=== PATIENT | female | born 1935 | race Caucasian/White ===

== ENCOUNTER 2021-02-17 15:44 | Inpatient (IN) | payer MEDICARE, OTHER ==
[~2021-02-17] VITALS: Ht 157.5 cm; Wt 59.0 kg
--- NOTE | 2021-02-17 16:00 | NUR ---
DR. 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
--- NOTE | 2021-02-17 16:14 | NUR ---
PT TO CT SCAN
[2021-02-17] MEDS ORDERED: MORPHINE SULFATE 2 MG/1 ML DISP.SYRIN IV ONE (16:15)
[2021-02-17] MEDS ORDERED: ONDANSETRON 4 MG/2 ML VIAL IV ONE (16:15)
[2021-02-17] MEDS ORDERED: PIPERACILLIN SODIUM/TAZOBACTAM 3.375 G in IV DEXTROSE 5% 50 ML IV ONE (16:15)
[2021-02-17] MEDS ORDERED: ONDANSETRON 4 MG/2 ML VIAL ONE (16:23)
[2021-02-17] MEDS ORDERED: PIPERACILLIN/TAZOBACTAM/D5W 50 ML IV ONE (16:24)
[2021-02-17] MEDS ORDERED: MORPHINE SULFATE 2 MG/1 ML DISP.SYRIN ONE (16:24)
[2021-02-17 16:36] LABS: HEMATOCRIT 33.5 % (31.2-41.9); MEAN CORPUSCULAR HEMOGLOBIN 24.1 uug (24.7-32.8); MEAN CORPUSCULAR VOLUME 80.3 fL (75.5-95.3); PLATELET COUNT (AUTO) 122 K/uL (179-408)
[2021-02-17 16:40] LABS: CARBON DIOXIDE 23 mmol/L (21-32); CHLORIDE 105 mmol/L (98-107); CREATININE 1.4 mg/dL (0.6-1.3); GLUCOSE 97 mg/dL (74-106); POTASSIUM 3.8 mmol/L (3.5-5.1); UREA NITROGEN, BLOOD 19 mg/dL (7-18)
[2021-02-17 16:46] LABS: ALANINE AMINOTRANSFERASE 11 U/L (14-59); ALKALINE PHOSPHATASE 108 U/L (50-136); ASPARTATE AMINOTRANSFERASE 24 U/L (15-37); BILIRUBIN,DIRECT 0.2 mg/dL (0.0-0.2); BILIRUBIN,TOTAL 0.7 mg/dL (0.2-1.0); TOTAL PROTEIN, SERUM 6.5 g/dL (6.4-8.2)
[2021-02-17] MEDS ORDERED: IV NS 1000 ML 1,000 ML IV ONE (17:00)
[2021-02-17] MEDS ORDERED: PRAV40TA3 PO (17:32)
[2021-02-17] MEDS ORDERED: IBRU140T PO (17:32)
[2021-02-17] MEDS ORDERED: ALLO100T PO (17:32)
[2021-02-17] MEDS ORDERED: LEVO50TA8 PO (17:32)
[2021-02-17 17:45] LABS: BAND % (MANUAL) 2 % (0-10); EOSINOPHILS % (MANUAL) 1 % (0-8); LYMPHOCYTES % (MANUAL) 80 % (20-40); MONOCYTES % (MANUAL) 4 % (2-10); NEUTROPHILS % (MANUAL) 10 % (42-75)
[2021-02-17 17:46] LABS: BLASTS, MANUAL % 3 % (0-0)
--- NOTE | 2021-02-17 18:07 | NUR ---
PT REFUSED DINNER, REQUESTED SOME JELLY ONLY.
--- NOTE | 2021-02-17 18:12 | NUR ---
DR. FERMIN ADMITTED PT TO TELE. TRANSFER TO FLOOR PENDING ON BED AVAILABILITY
--- NOTE | 2021-02-17 19:05 | NUR ---
Report recieved from MILI Rod. Pt stable, resting comfortably with no complaints of pain, nausea or discomfort. VSS, PE WNL with good color, temp, and appearance. no s/sx of distress present
[2021-02-17] MEDS ORDERED: ONDANSETRON 4 MG/2 ML VIAL IV PRN (20:30)
--- NOTE | 2021-02-17 21:40 | NUR ---
Called tele floor to give report to Swati, Swati told me she would call back in5-10 min.
[2021-02-17] MEDS ORDERED: CLINDAMYCIN PHOSPHATE IV 600 MG in IV DEXTROSE 5% 100 ML IV SCH (22:00)
--- NOTE | 2021-02-17 22:00 | NUR ---
Called tele floor a second time to give report. Swati said she is still very busy and would have to call me back.
--- NOTE | 2021-02-17 22:10 | NUR ---
Report given to Cailin Longoria. Pt belongs form completed. VSS, PE WNL, Pt is sleepy and states that she feels weak.
--- NOTE | 2021-02-17 23:00 | NUR ---
Pt transported to tele room 306 without incident. Pt tolerated well. Denies any pain, nausea or discomfort. Pt taken to tele room, walked over to bed and changed into gown and placed on tele. No s/sx of distress present.
--- NOTE | 2021-02-17 23:10 | NUR ---
Admitted 85 yr old female from ER. With admitting diagnosis right jaw dental abscess via gurney. Able to transfer/ ambulate with contact guard assist. She is anxious, wanting to go home, confused. Vitals taken, placed on telemetry. Able to answer questions appropriately but with moments of confusion and inappropriate remarks. Admission care rendered. care home assessment completed. Admission orders carried out.
[2021-02-17 23:30] VITALS: BP 126/50
[2021-02-18] VITALS: BP 120/51
[2021-02-18] MEDS: ACETAMINOPHEN 325 MG TABLET PO PRN ×3 (01:04→21:09)
--- NOTE | 2021-02-18 01:04 | NUR ---
Photo of right jaw swelling and redness taken. Temperature noted at 101.5, cooling measures offered but declined. Tylenol 650mg PO given. Kept comfortable and dry.
[2021-02-18] MEDS ORDERED: CLINDAMYCIN PHOSPHATE 600 MG/4 ML VIAL ONE (01:46)
[2021-02-18] MEDS: CLINDAMYCIN PHOSPHATE IV 600 MG in IV DEXTROSE 5% 100 ML IV SCH ×2 (02:05→09:19)
[2021-02-18] MEDS: ACIDOPHILUS/BULGARICUS CHEW TAB PO SCH ×4 (02:09→21:03)
[2021-02-18 04:00] VITALS: BP 109/52
--- NOTE | 2021-02-18 04:00 | NUR ---
Cooling measures and Tylenol 650mg PO effective. Temperature decreased to 98.1.
[2021-02-18] MEDS: IV 1/2NS 1000 ML 1,000 ML IV PRN ×2 (04:08→23:54)
--- NOTE | 2021-02-18 06:20 | NUR ---
Patient resting comfortably this shift. Able to make needs known, alert *4, denies any pain. Still noted with swelling and redness to right jaw due to dental abscess, picture in chart. Clindamycin provided as ordered via IV on right AC. no adverse reaction noted.
[2021-02-18] MEDS: LEVOTHYROXINE SODIUM 50 MCG TABLET PO SCH (06:38)
[2021-02-18 07:16] LABS: HEMATOCRIT 30.2 % (31.2-41.9); MEAN CORPUSCULAR HEMOGLOBIN 24.5 uug (24.7-32.8); MEAN CORPUSCULAR VOLUME 80.9 fL (75.5-95.3); PLATELET COUNT (AUTO) 91 K/uL (179-408)
[2021-02-18 07:32] LABS: IRON, SERUM 15 ug/dL (50-175)
[2021-02-18 07:40] LABS: ALANINE AMINOTRANSFERASE 11 U/L (14-59); ALKALINE PHOSPHATASE 94 U/L (50-136); ASPARTATE AMINOTRANSFERASE 24 U/L (15-37); BILIRUBIN,TOTAL 0.7 mg/dL (0.2-1.0); CARBON DIOXIDE 25 mmol/L (21-32); CHLORIDE 108 mmol/L (98-107); CHOLESTEROL 150 mg/dL (<200); CREATININE 1.4 mg/dL (0.6-1.3); GLUCOSE 88 mg/dL (74-106); HDL CHOLESTEROL 17 mg/dL (40-60); PHOSPHOROUS 3.5 mg/dL (2.5-4.9); POTASSIUM 3.9 mmol/L (3.5-5.1); TOTAL PROTEIN, SERUM 5.6 g/dL (6.4-8.2); TRIGLYCERIDES 143 MG/DL (30-150); UREA NITROGEN, BLOOD 19 mg/dL (7-18)
[2021-02-18 07:56] LABS: THYROID STIMULATING HORMONE 2.924 mIU/mL (0.358-3.740)
[2021-02-18] MEDS: ALLOPURINOL 100 MG TABLET PO SCH (08:56)
[2021-02-18] MEDS: MORPHINE SULFATE 2 MG/1 ML DISP.SYRIN IV PRN ×2 (08:56→14:12)
[2021-02-18] MEDS: PANTOPRAZOLE SODIUM 40 MG VIAL IV SCH (08:58)
[2021-02-18 11:15] VITALS: BP 112/52
[2021-02-18] MEDS: PIPERACILLIN SODIUM/TAZOBACTAM 3.375 G in IV DEXTROSE 5% 50 ML IV SCH ×2 (14:09→19:36)
--- NOTE | 2021-02-18 14:57 | NUR ---
APPLICATION INTEGRATION ARCHITECT reported to RN that patient has a fever, as recorded, and is desaturating on RA at 84-88%. This was after Morphine 2mg was given, placed pateint on supportive O2 of 2LPM via NC. Will administer Tylenol 650 mg PO.
[2021-02-18] MEDS ORDERED: VANCOMYCIN IV 1,000 MG in IV DEXTROSE 5% 250 ML IV ONE (15:00)
[2021-02-18 15:30] VITALS: BP 117/53
[2021-02-18 16:57] LABS: BAND % (MANUAL) 1 % (0-10); LYMPHOCYTES % (MANUAL) 75 % (20-40); MONOCYTES % (MANUAL) 8 % (2-10); NEUTROPHILS % (MANUAL) 16 % (42-75)
[2021-02-18 20:03] VITALS: BP 111/43
[2021-02-19] MEDS: PIPERACILLIN SODIUM/TAZOBACTAM 3.375 G in IV DEXTROSE 5% 50 ML IV SCH ×3 (02:53→13:47)
[2021-02-19 04:06] VITALS: BP 122/43
--- NOTE | 2021-02-19 04:56 | NUR ---
Pt in no acute distress. Able to make needs known. Denies SOB or chest pain. Titrated to RA, satting 95%. IV site intact. No other issues or concerns at this time, will endorse to day shift.
[2021-02-19] MEDS: ACIDOPHILUS/BULGARICUS CHEW TAB PO SCH ×3 (06:00→21:20)
[2021-02-19] MEDS: LEVOTHYROXINE SODIUM 50 MCG TABLET PO SCH (06:00)
[2021-02-19 07:28] LABS: HEMATOCRIT 30.7 % (31.2-41.9); MEAN CORPUSCULAR HEMOGLOBIN 24.6 uug (24.7-32.8); MEAN CORPUSCULAR VOLUME 80.8 fL (75.5-95.3); PLATELET COUNT (AUTO) 75 K/uL (179-408)
[2021-02-19 07:43] LABS: CARBON DIOXIDE 23 mmol/L (21-32); CHLORIDE 107 mmol/L (98-107); CREATININE 1.4 mg/dL (0.6-1.3); GLUCOSE 88 mg/dL (74-106); PHOSPHOROUS 3.2 mg/dL (2.5-4.9); POTASSIUM 3.8 mmol/L (3.5-5.1); UREA NITROGEN, BLOOD 17 mg/dL (7-18)
--- NOTE | 2021-02-19 08:00 | NUR ---
Received pt from table games shift manager RN. Pt is a/o x3-4. Currenlty stable on room air , she was titrated off from 2 L NC during table games shift manager. 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 Pt has call light within reach, no signs of acute distress or discomfort at this time. will continue to monitor.
[2021-02-19] MEDS: PANTOPRAZOLE SODIUM 40 MG VIAL IV SCH (08:40)
[2021-02-19] MEDS: ALLOPURINOL 100 MG TABLET PO SCH (08:40)
[2021-02-19] MEDS: Z GUARD REMEDY PASTE 57 GM TUBE TOP SCH ×2 (09:45→21:24)
[2021-02-19] MEDS: ACETAMINOPHEN 325 MG TABLET PO PRN (10:11)
[2021-02-19 11:00] VITALS: BP 120/53
--- NOTE | 2021-02-19 11:00 | NUR ---
at 1015 pt had temperature of 99.1. Provided acetaminophen, at 1056 temp was reassessed at 98.3.
[2021-02-19] MEDS ORDERED: MIRALAX 17 GM POWD.PACK PO PRN (11:45)
[2021-02-19 15:00] VITALS: BP 101/57
[2021-02-19] MEDS: VANCOMYCIN IV 750 MG in IV DEXTROSE 5% 250 ML IV SCH (15:36)
[2021-02-19] MEDS ORDERED: HOME MED MISCELLANEOUS PO SCH (18:00)
[2021-02-19] MEDS: IV 1/2NS 1000 ML 1,000 ML IV PRN (19:54)
[2021-02-19 20:06] VITALS: BP 130/58
--- NOTE | 2021-02-19 20:11 | NUR ---
Received patient in bed alert and able to make needs known.On RA ,denies SOB.No acute distress noted.Rt jaw still noted with mild swelling.Denies pain at this time.Iv on Right hand with IVF running well .Tolerated well.Adm. IV ATB as ordered. No a/r noted.Will continue to monitor.
[2021-02-19] MEDS: PIPERACILLIN/TAZO 2.25 G in IV DEXTROSE 5% 50 ML IV SCH (20:12)
[2021-02-19] MEDS: TEMAZEPAM 15 MG CAPSULE PO PRN (21:33)
[2021-02-20] MEDS: PIPERACILLIN/TAZO 2.25 G in IV DEXTROSE 5% 50 ML IV SCH ×4 (02:12→20:16)
[2021-02-20 04:06] VITALS: BP 147/59
[2021-02-20] MEDS: ACIDOPHILUS/BULGARICUS CHEW TAB PO SCH ×2 (05:52→13:22)
[2021-02-20] MEDS: IV 1/2NS 1000 ML 1,000 ML IV PRN (05:53)
[2021-02-20] MEDS: PANTOPRAZOLE SODIUM 40 MG TABLET.DR PO SCH (06:19)
[2021-02-20] MEDS: LEVOTHYROXINE SODIUM 50 MCG TABLET PO SCH (06:19)
[2021-02-20 07:14] LABS: HEMATOCRIT 29.4 % (31.2-41.9); MEAN CORPUSCULAR HEMOGLOBIN 24.4 uug (24.7-32.8); PLATELET COUNT (AUTO) 89 K/uL (179-408)
[2021-02-20 07:47] LABS: BILIRUBIN,TOTAL 0.6 mg/dL (0.2-1.0); CREATININE 1.3 mg/dL (0.6-1.3); PHOSPHOROUS 2.7 mg/dL (2.5-4.9); POTASSIUM 3.6 mmol/L (3.5-5.1); TOTAL PROTEIN, SERUM 5.5 g/dL (6.4-8.2)
[2021-02-20] MEDS: ALLOPURINOL 100 MG TABLET PO SCH (08:28)
[2021-02-20] MEDS: Z GUARD REMEDY PASTE 57 GM TUBE TOP SCH ×2 (08:34→20:21)
--- NOTE | 2021-02-20 09:03 | NUR ---
received critical wbc 43.9 trending down previously 52.6. informed dr. martinez who's on the floor nno received.
--- NOTE | 2021-02-20 09:58 | NUR ---
received this morning awake and previous nurse reinserting iv on rfa. denies pain or sob. comfortable on ra. still noted with mild swelling and some redness on right jaw. pt tolerated breakfast and medications earlier. bed at lowest siderails up x2. call light and personal belongings in reach.
[2021-02-20 10:55] VITALS: BP 99/75
--- NOTE | 2021-02-20 12:25 | NUR ---
per pt imbruvica med kept at pharmacy is not , just in an old bottle. re will bring new bottle tomorrow. pharmacy made aware.
[2021-02-20] MEDS: IMBRUVICA 140 MG PO SCH ×2 (13:28→20:20)
[2021-02-20] MEDS: VANCOMYCIN IV 750 MG in IV DEXTROSE 5% 250 ML IV SCH (14:20)
--- NOTE | 2021-02-20 19:40 | NUR ---
Received patient lying in bed, awake and alert. No acute distress noted at this time. Patient denies SOB, chest pain or dizziness. IV on R FA, 20 gauge, patent and intact. Reoriented patient to call light button. Bed side table within reach. Will continue to monitor.
[2021-02-20 20:06] VITALS: BP 150/59
[2021-02-20] MEDS: TEMAZEPAM 15 MG CAPSULE PO PRN (21:04)
[2021-02-21] MEDS: PIPERACILLIN/TAZO 2.25 G in IV DEXTROSE 5% 50 ML IV SCH ×2 (02:02→08:14)
[2021-02-21 04:06] VITALS: BP 153/64
[2021-02-21] MEDS: IV 1/2NS 1000 ML 1,000 ML IV PRN (06:10)
[2021-02-21] MEDS: LEVOTHYROXINE SODIUM 50 MCG TABLET PO SCH (06:10)
[2021-02-21] MEDS: PANTOPRAZOLE SODIUM 40 MG TABLET.DR PO SCH (06:10)
--- NOTE | 2021-02-21 06:58 | NUR ---
Patient slept intermittently through the night. No acute distress noted at this time.All due medications were given as ordered. Safety and comfort measures maintained. All needs were attended to and met. Will endorse to incoming nurse.
[2021-02-21] MEDS: ALLOPURINOL 100 MG TABLET PO SCH (08:14)
[2021-02-21] MEDS: Z GUARD REMEDY PASTE 57 GM TUBE TOP SCH ×2 (08:15→20:23)
--- NOTE | 2021-02-21 09:00 | NUR ---
walked in the hallway with physical therapist tolerated. no acute distress. pt was happy to be walking.
[2021-02-21 11:34] VITALS: BP 144/85
[2021-02-21] MEDS: PIPERACILLIN SODIUM/TAZOBACTAM 3.375 G in IV DEXTROSE 5% 100 ML IV SCH ×2 (15:55→23:58)
[2021-02-21 15:57] VITALS: BP 140/64
[2021-02-21 17:33] LABS: MEAN CORPUSCULAR HEMOGLOBIN 24.6 uug (24.7-32.8)
[2021-02-21 17:36] LABS: HEMATOCRIT 31.7 % (31.2-41.9); MEAN CORPUSCULAR VOLUME 80.5 fL (75.5-95.3); PLATELET COUNT (AUTO) 144 K/uL (179-408)
--- NOTE | 2021-02-21 17:56 | NUR ---
notified dr. martinez of wbc 88.1. dr martinez in the patient's room. KAREN mahmood also made aware waiting for reply.
--- NOTE | 2021-02-21 18:18 | NUR ---
dr. martinez on the floor with order for stat kub noted and carried.
--- NOTE | 2021-02-21 18:49 | NUR ---
alert and oriented able to make needs known. denies pain or sob. no acute distress. on iv atb zosyn no adverse/allergic reaction noted. blake midline intact and patent. no n/v/d noted. patient is comfortable. bed at lowest siderails up x2. needs attended. call light and personal belongings in reach. grandson and son in law were visiting no complaints. will endorse.
[2021-02-21 18:55] LABS: BAND % (MANUAL) 1 % (0-10); NEUTROPHILS % (MANUAL) 12 % (42-75)
[2021-02-21 18:56] LABS: EOSINOPHILS % (MANUAL) 1 % (0-8); MONOCYTES % (MANUAL) 3 % (2-10)
[2021-02-21 18:58] LABS: LYMPHOCYTES % (MANUAL) 83 % (20-40)
--- NOTE | 2021-02-21 19:55 | NUR ---
Patient in bed AALO4 .No acute distress noted. On Ra.Midline on Rt upper arm patent and intact with IVF infusing well.Dr Spencer Notified STAT KUB result with new order noted and carried. Patient made aware. Call light with in reach.
[2021-02-21] MEDS ORDERED: BISACODYL 10 MG SUPP.RECT RC PRN (20:00)
[2021-02-21 20:03] VITALS: BP 144/57
[2021-02-21] MEDS: IMBRUVICA 140 MG PO SCH (20:22)
[2021-02-21] MEDS: TEMAZEPAM 15 MG CAPSULE PO PRN (21:23)
--- NOTE | 2021-02-21 22:01 | NUR ---
Patient had a large BM after Dulcolax suppository given.Assisted patient to bathroom using FWW.SAfety mesures maintained.Will continue to monitor.
[2021-02-22 04:57] VITALS: BP 153/60
[2021-02-22] MEDS: PANTOPRAZOLE SODIUM 40 MG TABLET.DR PO SCH (06:05)
[2021-02-22] MEDS: IV 1/2NS 1000 ML 1,000 ML IV PRN (06:05)
[2021-02-22] MEDS: LEVOTHYROXINE SODIUM 50 MCG TABLET PO SCH (06:05)
[2021-02-22 06:51] LABS: HEMATOCRIT 30.4 % (31.2-41.9); MEAN CORPUSCULAR HEMOGLOBIN 24.1 uug (24.7-32.8); MEAN CORPUSCULAR VOLUME 79.9 fL (75.5-95.3); PLATELET COUNT (AUTO) 147 K/uL (179-408)
[2021-02-22 06:58] LABS: CREATININE 1.2 mg/dL (0.6-1.3); MAGNESIUM 2.1 mg/dL (1.8-2.4); PHOSPHOROUS 3.4 mg/dL (2.5-4.9); POTASSIUM 4.2 mmol/L (3.5-5.1)
--- NOTE | 2021-02-22 07:34 | NUR ---
Called ID and spoke to Dr. Steel on-call and reported wbc 88.1 he said they'll be here shortly and no new orders received.
[2021-02-22] MEDS: Z GUARD REMEDY PASTE 57 GM TUBE TOP SCH (08:16)
[2021-02-22] MEDS: PIPERACILLIN SODIUM/TAZOBACTAM 3.375 G in IV DEXTROSE 5% 100 ML IV SCH ×2 (08:16→15:40)
[2021-02-22] MEDS: ALLOPURINOL 100 MG TABLET PO SCH (08:16)
--- NOTE | 2021-02-22 08:19 | NUR ---
received critical lab wbc 95.8. relayed to kee elaine. also called id and paged emory. will cont to monitor.
--- NOTE | 2021-02-22 09:29 | NUR ---
emory mahmood id on the floor is aware of results and per her will discuss with dr. moses. no new orders received at this time
--- NOTE | 2021-02-22 10:30 | NUR ---
received pt awake and responsive watching tv. no acute distress. very pleasant. right jaw still swollen and c/o pain when palpated. refused pain medication. no difficulty breathing, eating or swallowing. medications tolerated. blake midline intact and patent hydration ongoing. pt is comfortable. bed at lowest siderails up x2. call light and personal belongings in reach. will cont to monitor.
[2021-02-22 11:36] VITALS: BP 130/53
[2021-02-22] MEDS: VANCOMYCIN FOR PO/GT/NG USE PO SCH ×2 (12:09→18:05)
[2021-02-22] MEDS ORDERED: METRONIDAZOLE 500 MG/NS 100ML 500 MG in PREMIXED 1 EACH IV SCH (14:00)
[2021-02-22 16:00] VITALS: BP 118/61
[2021-02-22 17:14] LABS: LYMPHOCYTES % (MANUAL) 94 % (20-40); MONOCYTES % (MANUAL) 1 % (2-10); NEUTROPHILS % (MANUAL) 5 % (42-75)
[2021-02-22] MEDS ORDERED: ACET325T53 PO (17:33)
[2021-02-22] MEDS ORDERED: PANT40TA49 PO (17:33)
[2021-02-22] MEDS ORDERED: POLY17PO4 PO (17:33)
[2021-02-22] MEDS ORDERED: BISA10SU12 RC (17:33)
[2021-02-22] MEDS ORDERED: AMPI3VIA IV (17:33)
[2021-02-22] MEDS ORDERED: TEMA15CA PO (17:33)
--- NOTE | 2021-02-22 19:00 | NUR ---
discharged pt to snf per order. no acute distress noted. discharge instructions/medications and f/up relayed and she verbalized understanding. blake midline remains intact flushing well. pt discharged with all her belongings and medications. report given to aliya GARCES at [facility]. pt picked up by [facility] in stable condition.
== END 2021-02-22 19:00 | DRG 871 ==
LOC: ER 15:45 → TELE3 22:34 → MEDSURG3 02-18 08:30
PROVIDERS: ADMIT Internal Medicine; ATTEND Registered Nurse
PROC: 05H533Z Insertion of Infusion Device into Right Subclavian Vein, Percutaneous Approach (ICD-10-PCS; principal; 2021-02-21)
PROC: B546ZZA Ultrasonography of Right Subclavian Vein, Guidance (ICD-10-PCS; 2021-02-21)
DX: A41.9 Sepsis, unspecified organism (principal); N17.0 Acute kidney failure with tubular necrosis; I62.00 Nontraumatic subdural hemorrhage, unspecified; C91.10 Chronic lymphocytic leukemia of B-cell type not having achieved remission; E44.0 Moderate protein-calorie malnutrition; D68.59 Other primary thrombophilia; G91.9 Hydrocephalus, unspecified; K04.7 Periapical abscess without sinus; R55 Syncope and collapse; D63.0 Anemia in neoplastic disease; D50.9 Iron deficiency anemia, unspecified; D69.59 Other secondary thrombocytopenia; E03.9 Hypothyroidism, unspecified; E88.09 Other disorders of plasma-protein metabolism, not elsewhere classified; E78.5 Hyperlipidemia, unspecified; E86.1 Hypovolemia; Z98.2 Presence of cerebrospinal fluid drainage device; Z20.822 Contact with and (suspected) exposure to COVID-19; Z74.09 Other reduced mobility; J32.9 Chronic sinusitis, unspecified; M10.9 Gout, unspecified; Z68.23 Body mass index [BMI] 23.0-23.9, adult; Z79.890 Hormone replacement therapy
CPT/HCPCS: 36415; 70030-TC; 70450; 71045; 74018; 82378; 83550; 83605; 83735; 84100; 84443; 85025; 85730; 86803; 87040; 87070; 87806; 93005; 93307; 97161; A4663; C9113; G0378; J2270; J2405; J2543; J3370; J3490; J7030; J7060; J8499